=== PATIENT | male | born 1945 | race Caucasian/White ===

== ENCOUNTER 2016-09-29 16:50 | Inpatient (IN) | payer MEDICARE, OTHER ==
--- NOTE | ~2016-09-29 | HP ---
History And Physical [facility] [address] [facility] [address] [facility] [place]. [address] NAME: BRANDYN PRINGLE : 49 STATUS : ADM IN [facility]#: [id number] AGE: 71 ADM/REG DATE : 09/29/16 MR#: [id number] REPORT SERV DATE: 09/30/16 DICTATED BY: DAREN PENNY DATE: 09/29/16 REPORT STATUS : Draft TRANSCRIBED BY: MODAroldo DATE: 09/29/16 DATE OF ADMISSION: 09/29/2016 CHIEF COMPLAINT: Chest pain. HISTORY OF PRESENT ILLNESS: A 71-year-old male with history of hypertension, hyperlipidemia, and probable generalized anxiety disorder. The patient also with remote history of chronic lymphocytic leukemia. The patient developed chest pain approximately two days ago. This occurred with exertion. With rest, this resolved. The patient sought no further medical treatment or evaluation. The patient with mild exertion today developed recurrent chest pain which with rest did not resolve. Emergency Medical Services were activated. On arrival by Emergency Medical Services, an electrocardiogram was performed which demonstrated sinus rhythm with evidence of ST-segment elevation consistent with acute ST-segment elevation myocardial infarction. The Code-STEMI protocol was activated, and the patient was transferred emergently to [facility] with direct admission to the cardiac catheterization laboratory. On arrival in the catheterization laboratory, the patient complained of 7/10 intensity chest pain. The patient notes that approximately three to four days ago, the patient experienced GI upset with recurrent vomiting. This had resolved by time of chest pain symptoms over the last two days. The patient has had no other recent constitutional complaints. PAST MEDICAL HISTORY: 1. Hypertension. 2. Probable anxiety disorder. 3. History of CLL. 4. Reported hyperlipidemia. 5. Gastroesophageal reflux disease. SOCIAL HISTORY: Denies tobacco use for the last 50 years. Denies alcohol or illicit drug use. FAMILY HISTORY: Notable for mother with congestive heart failure in older age. ALLERGIES: NO KNOWN DRUG ALLERGIES. MEDICATIONS: Losartan, buspirone, alprazolam, omeprazole. Doses unknown by patient. REVIEW OF SYSTEMS: Negative for all organ systems except per the history of present illness. PHYSICAL EXAMINATION: VITALS: Blood pressure 142/68, pulse 76, respirations 12 and unlabored. GENERAL: Overweight elderly male, in moderate distress secondary to chest pain. HEENT: Normal. NECK: Supple, no JVD or bruit, normal carotid upstroke bilaterally, no thyromegaly. History And Physical [address] [place]. [address] NAME: BRANDYN PRINGLE : 49 STATUS : ADM IN [facility]#: [id number] AGE: 71 ADM/REG DATE : 09/29/16 MR#: [id number] REPORT SERV DATE: 09/30/16 DICTATED BY: DAREN PENNY DATE: 09/29/16 REPORT STATUS : Draft TRANSCRIBED BY: ANGIE DATE: 09/29/16 LUNGS: Clear to auscultation and percussion. No wheezes, rales or rhonchi. No use of accessory muscles. CARDIOLOGY: Regular rhythm, normal S1, S2, no thrill, no murmur, rubs or gallops, normal PMI. ABDOMEN: Bowel sounds positive, soft, nontender, and nondistended. No masses or aortic bruits. No hepatosplenomegaly or hepatojugular reflux. EXTREMITIES: No edema. Normal pulses. No clubbing or cyanosis. SKIN: Warm and dry, no significant rash. NEUROLOGIC: Alert and oriented x 3. Appropriate mood. DATA: EKG: Sinus rhythm with inferior ST-segment elevation. IMPRESSION: Acute inferior wall ST-segment elevation myocardial infarction. The patient received emergently cardiac catheterization laboratory for angiography and intervention as indicated. Please see details of the procedure under separate report. ABBY/ANGIE Rocío Penny M.D. / [id number] CC: Rocío Penny M.D.
[~2016-09-29 16:50] MED LIST: ACIPHEX PO; ATV.5 PO; BUPROBAN150 MG PO; NASONEX NAS; NEXIUM20 M1 PO; SINGULAIR1 PO; TUMSROLL PO; TYLENOL PM PO; VERAMYST27.5 MCG NAS
[2016-09-29 17:11] LABS: BASOPHILS 0.5 %; BASOPHILS ABSOLUTE 0.03 10/3/uL (0.0-0.16); EOSINOPHILS 2.1 %; EOSINOPHILS ABSOLUTE 0.13 10/3/uL (0.0-0.53); HEMATOCRIT 39.4 % (40.0-51.0); HEMOGLOBIN 13.8 g/dL (13.6-17.8); IMMATURE GRANULOCYTES 0.2 %; IMMATURE GRANULOCYTES ABSOLUTE 0.01 10/3/uL (0.0-0.11); LYMPHOCYTES 22.3 %; LYMPHOCYTES ABSOLUTE 1.39 10/3/uL (0.67-4.30); MEAN CORPUSCULAR HEMOGLOB 30.6 pg (26.0-34.0); MEAN CORPUSCULAR VOLUME 87.4 fL (80-100); MEAN PLATELET VOLUME 10.5 fL (9.2-13.0); MONOCYTES 8.5 %; MONOCYTES ABSOLUTE 0.53 10/3/uL (0.21-1.20); NEUTROPHILS 66.4 %; NEUTROPHILS ABSOLUTE 4.13 10/3/uL (2.02-8.40); PLATELET COUNT 168 10/3/uL (150-400); RBC DISTRIBUTION WIDTH 13.7 % (12.0-16.0); RED CELL COUNT 4.51 10/6/uL (4.7-6.1)
[2016-09-29 17:12] LABS: MANUAL DIFF NO %; WHITE BLOOD CELLS 6.2 10/3/uL (4.5-10.5)
[2016-09-29 17:18] LABS: INTERNATIONAL NORMAL RATI 1.2 UNITS (-); PARTIAL THROMBO TIME 28.3 SEC (22.5-37.2); PROTIME (NOT ORD) 14.6 SEC (12.0-14.5)
[2016-09-29 17:30] LABS: BUN (BLOOD UREA NITROGEN) 13 MG/DL (6-23); CALCIUM, SERUM 8.1 MG/DL (8.5-10.4); CHLORIDE, SERUM 107 MMOL/L (96-112); CO2 (CARBON DIOXIDE) 22 MMOL/L (24-34); CREATININE 0.81 MG/DL (0.70-1.30); GFR AFRICAN AMERICAN 105 ML/MIN (>=60); GFR NON AFRICAN AMERICAN 91 ML/MIN (>=60); POTASSIUM, SERUM 3.8 MMOL/L (3.5-5.3); SODIUM, SERUM 140 MMOL/L (135-148)
[2016-09-29 17:31] LABS: GLUCOSE, SERUM 119 MG/DL (60-99)
[2016-09-29 17:32] LABS: CHEST PAIN PROFILE TAT 0 Hrs 26 Mins; TROPONIN I 0.38 NG/ML (<0.05)
[2016-09-29] MEDS ORDERED: NEUR100 PO (19:44)
[2016-09-29] MEDS ORDERED: COZ50 PO (19:44)
[2016-09-29] MEDS ORDERED: ATV.5 PO (19:44)
[2016-09-29] MEDS ORDERED: PRILO PO (19:44)
[2016-09-29] MEDS ORDERED: AFRIN15 NAS (19:45)
[2016-09-29] MEDS ORDERED: WELLXL150 PO (19:45)
[2016-09-29] MEDS ORDERED: VITAMIN C PO (19:46)
[2016-09-29] MEDS ORDERED: MULTIVITAMIN GUMMY PO (19:46)
[2016-09-29] MEDS ORDERED: [UNRECOGNIZED DRUG - REMARK] PO (19:47)
[2016-09-29] MEDS ORDERED: GLUCCHONDR PO (19:47)
[2016-09-30 01:23] LABS: CK-MB 33.9 NG/ML; CPK 295 U/L (0-200)
[2016-09-30 01:26] LABS: CKMB INDEX (NOT ORD) 11.5
[2016-09-30 03:14] LABS: BASOPHILS 0.4 %; BASOPHILS ABSOLUTE 0.03 10/3/uL (0.0-0.16); EOSINOPHILS 1.6 %; EOSINOPHILS ABSOLUTE 0.13 10/3/uL (0.0-0.53); HEMATOCRIT 40.6 % (40.0-51.0); HEMOGLOBIN 13.9 g/dL (13.6-17.8); IMMATURE GRANULOCYTES 0.3 %; IMMATURE GRANULOCYTES ABSOLUTE 0.02 10/3/uL (0.0-0.11); LYMPHOCYTES 14.5 %; LYMPHOCYTES ABSOLUTE 1.16 10/3/uL (0.67-4.30); MANUAL DIFF NO %; MEAN CORPUS HGB CONC 34.2 g/dL (32.0-36.0); MEAN CORPUSCULAR HEMOGLOB 31.2 pg (26.0-34.0); MEAN CORPUSCULAR VOLUME 91.2 fL (80-100); MEAN PLATELET VOLUME 11.4 fL (9.2-13.0); MONOCYTES 9.9 %; MONOCYTES ABSOLUTE 0.79 10/3/uL (0.21-1.20); NEUTROPHILS 73.3 %; NEUTROPHILS ABSOLUTE 5.86 10/3/uL (2.02-8.40); PLATELET COUNT 162 10/3/uL (150-400); RBC DISTRIBUTION WIDTH 13.6 % (12.0-16.0); RED CELL COUNT 4.45 10/6/uL (4.7-6.1)
[2016-09-30 03:25] LABS: BUN (BLOOD UREA NITROGEN) 12 MG/DL (6-23); CHLORIDE, SERUM 109 MMOL/L (96-112); CO2 (CARBON DIOXIDE) 22 MMOL/L (24-34); CREATININE 0.82 MG/DL (0.70-1.30); GFR AFRICAN AMERICAN 105 ML/MIN (>=60); GFR NON AFRICAN AMERICAN 90 ML/MIN (>=60); HDL CHOLESTEROL 30 MG/DL (> 39); POTASSIUM, SERUM 3.4 MMOL/L (3.5-5.3); SODIUM, SERUM 146 MMOL/L (135-148)
[2016-09-30 03:28] LABS: CALCIUM, SERUM 8.2 MG/DL (8.5-10.4); CHOL/HDL RATIO(NOT ORDER) 4.9 (0-5); CHOLESTEROL 146 MG/DL (< 200); GLUCOSE, SERUM 154 MG/DL (60-99); LDL CHOLESTEROL 75 MG/DL (< 130); NON-HDL CHOLESTEROL 116 MG/DL (< 160); TRIGLYCERIDE 207 MG/DL (< 150)
[2016-09-30 09:58] LABS: CK-MB 23.7 NG/ML; CKMB INDEX (NOT ORD) 9.8
[2016-09-30 09:59] LABS: TROPONIN I 6.79 NG/ML (<0.05)
[2016-09-30 17:46] LABS: CK-MB 13.1 NG/ML; CKMB INDEX (NOT ORD) 7.9
[2016-10-01 04:15] LABS: CREATININE 0.95 MG/DL (0.70-1.30)
[2016-10-01] MEDS ORDERED: ASAB PO (08:58)
[2016-10-01] MEDS ORDERED: LIPITOR40 PO (08:58)
[2016-10-01] MEDS ORDERED: COREG3 PO (09:00)
[2016-10-01] MEDS ORDERED: BRILINTA90 MG PO (09:02)
== END 2016-10-01 13:01 | disposition home or self-care (01) | DRG 247 ==
LOC: SSU2 16:50 → CVICU 17:44 → 5NO 09-30 13:38
PROVIDERS: Internal Medicine Cardiovascular Disease
PROC: 4A023N7 Measurement of Cardiac Sampling and Pressure, Left Heart, Percutaneous Approach (ICD-10-PCS; principal; 2016-09-29)
PROC: 027034Z Dilation of Coronary Artery, One Artery with Drug-eluting Intraluminal Device, Percutaneous Approach (ICD-10-PCS; 2016-09-29)
PROC: B2111ZZ Fluoroscopy of Multiple Coronary Arteries using Low Osmolar Contrast (ICD-10-PCS; 2016-09-29)
PROC: B2151ZZ Fluoroscopy of Left Heart using Low Osmolar Contrast (ICD-10-PCS; 2016-09-29)
DX: I21.19 ST elevation (STEMI) myocardial infarction involving other coronary artery of inferior wall (principal); I10 Essential (primary) hypertension; I25.10 Atherosclerotic heart disease of native coronary artery without angina pectoris; Z85.6 Personal history of leukemia; E78.00 Pure hypercholesterolemia, unspecified; K21.9 Gastro-esophageal reflux disease without esophagitis; Z82.49 Family history of ischemic heart disease and other diseases of the circulatory system; F41.1 Generalized anxiety disorder; E78.5 Hyperlipidemia, unspecified
CPT/HCPCS: 71010; 80048; 80061; 82550; 82553; 82565; 83735; 84484; 85025; 85610; 85730; 93005; 93458; 99152; 99153; A9270-GY; C1725; C1760; C1769; C1874; C1887; C1894; C8929; C9606; J0583; J2250; J3010; Q9957; Q9967